=== PATIENT | female | born 1985 ===

== ENCOUNTER 2017-02-27 14:04 | Emergency (ER) | payer BC ==
[2017-02-27 14:31] VITALS: RESP 18; O2SAT 100
[2017-02-27 14:39] VITALS: BMI 31.2
[2017-02-27 14:41] VITALS: TEMP 99.1
--- NOTE | 2017-02-27 14:54 | ED PDOC ---
Arrival/HPI - General Historian: Patient - History of Present Illness Time/Duration: 4-6 hours Symptom Onset: Sudden Symptom Course: Unchanged Severity Level: 1 Activities at Onset: Light Context: Walking <Basim Ventura - Last Filed: 02/27/17 17:23> <Jerzy Abdalla - Last Filed: 02/27/17 18:13> - General Time Seen by Provider: 02/27/17 14:17 - History of Present Illness Narrative History of Present Illness (Text): 02/27/17 14:54 This is a 31 year old female with no past medical history, who comes into the [facility] with an accelerated heart rate per PMD. The patient went to her PMD Dr. Villegas earlier today to get a PPD read where her heart rate was taken and advised by her PMD to come to the Emergency Department. While at her PMD her heart rate was as high as 144 and blood pressure was also elevated at 144/88. The patient in September was put on the implantable control named Nexplanon. However, per the patient she has experienced a 10 pound weight gain and headaches since the start of the control and has plans of removing the device. The patient does report headaches. The patient denies any nausea, vomiting, lightheadedness, dizziness, weakness, vision changes or syncopal episodes 02/27/17 15:10 (Basim Ventura) Past Medical History - Provider Review Nursing Documentation Reviewed: Yes - Travel History Have you recently traveled outside [place] w/in the past 3 mons?: Yes If Yes, travel location?: [place] - Past History Past History: No Previous - Tetanus Immunization Tetanus Immunization: Up to Date - Past Medical History Past Medical History: No Previous - Genitourinary/Gynecological Other/Comment: control implant Left upper arm. - Psychiatric Hx Substance Use: No - Surgical History Other/Comment: Contraceptive implanted device left upper arm - Anesthesia Hx Anesthesia: No <Basim Ventura - Last Filed: 02/27/17 17:23> Family/Social History - Physician Review Nursing Documentation Reviewed: Yes Family/Social History: Hypertension Smoking Status: Never Smoked Hx Alcohol Use: Yes Frequency of alcohol use: Socially Hx Substance Use: No <Basim Ventura - Last Filed: 02/27/17 17:23> Allergies/Home Meds <Basim Ventura - Last Filed: 02/27/17 17:23> <Chau Abdallajeannie - Last Filed: 02/27/17 18:13> Allergies/Adverse Reactions: Allergies No Known Allergies Allergy (Verified 02/27/17 14:33) Home Medications: Home Meds Medication Instructions Recorded Confirmed No Known Home Med 02/27/17 02/27/17 Review of Systems - Physician Review All systems were reviewed & negative as marked: Yes - Review of Systems Constitutional: absent: Fevers, Night Sweats Eyes: absent: Vision Changes, Eye Pain ENT: Rhinorrhea. absent: Hearing Changes, Epistaxis Respiratory: absent: Sputum, Wheezing Cardiovascular: absent: Chest Pain, Palpitations, Edema Gastrointestinal: absent: Abdominal Pain, Nausea, Vomiting Skin: absent: Rash Neurological: Headache (headaches since putting in Nexplanon control in September.). absent: Dizziness, Speech Changes Endocrine: absent: Polyuria, Polydipsia <Basim Ventura - Last Filed: 02/27/17 17:23> Physical Exam Vital Signs Reviewed: Yes Temperature: Afebrile Blood Pressure: Hypertensive Pulse: Tachycardic Respiratory Rate: Normal Appearance: Positive for: Well-Appearing, Non-Toxic, Comfortable. No: Uncomfortable Pain Distress: None Mental Status: Positive for: Alert and Oriented X 3 - Systems Exam Head: Present: Atraumatic, Normocephalic Pupils: Present: PERRL Extroacular Muscles: Present: EOMI Conjunctiva: Present: Normal Mouth: Present: Moist Mucous Membranes Neck: Present: Normal Range of Motion. No: JVD, Lymphadenopathy Respiratory/Chest: Present: Clear to Auscultation, Good Air Exchange. No: Accessory Muscle Use, Wheezes, Rhonchi, Tachypneic Cardiovascular: Present: Regular Rate and Rhythm, Peripheal Pulses Present, Tachycardic Abdomen: Present: Normal Bowel Sounds. No: Tenderness, Distention, Peritoneal Signs Upper Extremity: Present: Normal Inspection. No: Cyanosis, Edema Lower Extremity: Present: Normal Inspection. No: Edema, CALF TENDERNESS Neurological: Present: CN II-XII Intact, Speech Normal, Memory Normal Skin: Present: Dry, Normal Color. No: Rashes, Diaphoretic Psychiatric: Present: Alert, Oriented x 3, Normal Insight, Normal Concentration <Basim Ventura - Last Filed: 02/27/17 17:23> <Jerzy Abdalla - Last Filed: 02/27/17 18:13> Vital Signs Temp Pulse Pulse Resp BP BP Pulse Ox 02/27/17 17:19 104 H 18 132/65 100 02/27/17 14:45 122 H 145/100 H 02/27/17 14:41 99.1 F 02/27/17 14:31 130 H 18 145/100 H 100 Medical Decision Making <Basim Ventura - Last Filed: 02/27/17 17:23> <Jerzy Abdalla - Last Filed: 02/27/17 18:13> ED Course and Treatment: 02/27/17 15:19 Patient presented to the E.D. with accelerated heart rate per her visit to her PMD Dr. Villegas. We will get labs including UDS, D-Dimer, Urine Tox, Test, CBC, CMP and CXR. Patient given Xanax .125mg for Anxiety and Fluid bolus. Will reevaluate clinical status after results are reviewed. (Basim Ventura) A 31 year old female sent in for tachycardia. In agreement with resident note, which includes further HPI details. Patient was seen and evaluated with resident , came up with plan and treatment together. 02/27/17 17:19 Patient with noted history with asymptomatic tachycardia. EKG shows sinus tachycardia. T wave changes are present but no cp with no acs risk factors. Labs are unremarkable including normal d-dimer, normal TFTs, normal H/H, and normal electrolytes. Urine drug screen and CXR are normal. Her vitals did improve significantly with a low dose of xanax and IVF. Case discussed with Dr. Villegas, who agrees with discharge and follow up with him. (Jerzy Abdalla) - Lab Interpretations Lab Results: 02/27/17 14:45 02/27/17 14:45 Lab Results 02/27/17 15:00: Urine HCG, Qual Negative 02/27/17 15:00: Urine Opiates Screen Negative, Urine Methadone Screen Negative, Ur Barbiturates Screen Negative, Ur Phencyclidine Scrn Negative, Ur Amphetamines Screen Negative, U Benzodiazepines Scrn Negative, U Oth Cocaine Metabols Negative, U Cannabinoids Screen Negative 02/27/17 14:50: Free T4 0.84, TSH 3rd Generation 2.72 02/27/17 14:45: Sodium 139, Potassium 3.6, Chloride 103, Carbon Dioxide 24, Anion Gap 16, BUN 10, Creatinine 0.7, Est GFR ( Amer) > 60, Est GFR (Non- Af Amer) > 60, Random Glucose 109, Calcium 9.6, Total Bilirubin 0.5, AST 23, ALT 25, Alkaline Phosphatase 78, Lactate Dehydrogenase 404, Total Creatine Kinase 94, Troponin I < 0.01, Total Protein 8.2, Albumin 4.6, Globulin 3.6, Albumin/Globulin Ratio 1.3, Lipase 54 02/27/17 14:45: D-Dimer, Quantitative 0.23 02/27/17 14:45: WBC 9.3, RBC 4.81, Hgb 14.4, Hct 41.5, MCV 86.3, MCH 29.9, MCHC 34.7, RDW 12.7, Plt Count 213, MPV 10.6, Gran % 78.1 H, Lymph % (Auto) 13.2 L, [place] % (Auto) 6.9 H, Eos % (Auto) 1.6, Baso % (Auto) 0.2, Gran # 7.28 H, Lymph # 1.2, [place] # 0.6, Eos # 0.2, Baso # 0.02 - RAD Interpretation Radiology Orders: 02/27/17 15:03 CXR [CHEST PORTABLE] [RAD] Stat - Medication Orders Current Medication Orders: Discontinued Medications Alprazolam (Xanax) 0.125 mg PO STAT STA PRN Reason: Protocol Stop: 02/27/17 15:06 Last Admin: 02/27/17 15:22 Dose: 0.125 mg Sodium Chloride (Sodium Chloride 0.9%) 1,000 mls @ 999 mls/hr IV .Q1H1M STA Stop: 02/27/17 16:07 Last Admin: 02/27/17 15:22 Dose: 999 mls/hr <Basim Ventura - Last Filed: 02/27/17 17:23> - PA / [employer] / Resident Statement JOSE G has reviewed & agrees with the documentation as recorded. / has examined the patient and agrees with the treatment plan. - Scribe Statement The provider has reviewed the documentation as recorded by the Scribe <Jerzy Abdalla - Last Filed: 02/27/17 18:13> - Scribe Statement Emily Tran Provider Scribe Attestation: All medical record entries made by the Scribe were at my direction and personally dictated by me. I have reviewed the chart and agree that the record accurately reflects my personal performance of the history, physical exam, medical decision making, and the department course for this patient. I have also personally directed, reviewed, and agree with the discharge instructions and disposition. (Jerzy Abadlla) Disposition/Present on Arrival - Present on Arrival History of DVT/PE: No History of Uncontrolled Diabetes: No Urinary Catheter: No History of Decub. Ulcer: No History Surgical Site Infection Following: None - Disposition Disposition Time: 05:10 Patient Plan: Discharge (Patient is to F/U with PMD Dr. Villegas.) <Basim Ventura - Last Filed: 02/27/17 17:23> - Present on Arrival Any Indicators Present on Arrival: No - Disposition Have Diagnosis and Disposition been Completed?: Yes <Jerzy Abdalla - Last Filed: 02/27/17 18:13> - Disposition Diagnosis: Sinus tachycardia Disposition: HOME/ ROUTINE Condition: GOOD Additional Instructions: Patient is to avoid OTC's , Caffeine, and any other stimulants. Patient is to F/ U with PMD Dr. Villegas. Return to the emergency department if any new concerning symptoms. Referrals: Brandyn Villegas MD [Primary Care Provider] - Follow up with primary Forms: WORK NOTE
[2017-02-27] MEDS ORDERED: Sodium Chloride 0.9% 1,000 ML IV STA (15:07)
[2017-02-27 15:16] LABS: ADD MANUAL DIFF? NO
[2017-02-27 15:29] LABS: BASO # 0.02 K/mm3 (0.0-2.0); BASO % 0.2 % (0.0-3.0); EOS # 0.2 (0.0-0.7); EOS % 1.6 % (1.5-5.0); GRAN # 7.28 (1.4-6.5); GRAN % 78.1 % (50.0-68.0); HEMATOCRIT 41.5 % (36.0-48.0); LYMPH # 1.2 (1.2-3.4); LYMPH % 13.2 % (22.0-35.0); MEAN CELL VOLUME 86.3 fL (80.0-105.0); MEAN CORPUSCULAR HEMOGLOBIN 29.9 pg (25.0-35.0); MEAN CORPUSCULAR HGB CONC 34.7 g/dl (31.0-37.0); MEAN PLATELET VOLUME 10.6 fl (7.0-11.0); MONO # 0.6 (0.1-0.6); MONO % 6.9 % (1.0-6.0); PLATELET COUNT 213 10^3/uL (120.0-450.0); RED CELL DISTRIBUTION WIDTH 12.7 % (11.5-14.5); WHITE BLOOD COUNT 9.3 10^3/ul (4.5-11.0)
[2017-02-27 15:49] LABS: ALB/GLOB RATIO 1.3 (1.1-1.8); ALKALINE PHOSPHATASE 78 U/L (38-133); ALT/SGPT 25 U/L (7-56); AST/SGOT 23 U/L (15-39); BILIRUBIN,TOTAL 0.5 mg/dL (0.2-1.3); BLOOD UREA NITROGEN 10 mg/dL (7-21); CALCIUM 9.6 mg/dL (8.4-10.5); CARBON DIOXIDE 24 mmol/L (21-33); CHLORIDE 103 mmol/L (98-107); GFR AFRICAN-AMERICAN > 60; GLUCOSE,RANDOM 109 mg/dL (70-110); LIPASE 54 U/L (23-300); POTASSIUM 3.6 mmol/L (3.6-5.0); SODIUM 139 mmol/L (132-148); TOTAL PROTEIN 8.2 g/dL (5.8-8.3)
--- NOTE | 2017-02-27 15:57 | RAD ---
HISTORY: r/o PE COMPARISON: No prior. FINDINGS: LUNGS: No active pulmonary disease. PLEURA: No significant pleural effusion identified, no pneumothorax apparent. CARDIOVASCULAR: Normal. OSSEOUS STRUCTURES: No significant abnormalities. VISUALIZED UPPER ABDOMEN: Normal. OTHER FINDINGS: None. IMPRESSION: No active disease.
[2017-02-27 16:07] LABS: TROPONIN I < 0.01 ng/mL
[2017-02-27 16:38] LABS: FREE T4 0.84 ng/dL (0.78-2.19)
[2017-02-27 16:52] LABS: THYROID STIMULATING HORMONE 2.72 mIU/mL (0.46-4.68)
[2017-02-27 17:21] VITALS: BP 132/65; PULSE 104
--- NOTE | 2017-03-01 09:34 | CARD ---
APPROVED REPORT EKG Measurement Heart [id number] CO [id number] <Conclusion> Sinus tachycardia Possible right atrial enlargement Nonspecific T wave abnormality
== END 2017-02-27 17:53 | disposition home or self-care (01) ==
LOC: ED 14:04
DX: R00.0 Tachycardia, unspecified (principal)
CPT/HCPCS: 71010; 80053; 82550; 83615; 83690; 84439; 84443; 84484; 84703; 85025; 85378; 96360; 99284; G0480; J7040